=== PATIENT | female | born 1975 | race Caucasian/White ===

== ENCOUNTER 2022-01-04 11:18 | Emergency (ER) | payer OTHER, SELFPAY ==
--- NOTE | ~2022-01-04 | XR_ITS ---
XR chest 2V DATE: 01/04/2022 11:52 INDICATION: Persistent cough TECHNIQUE: PA and lateral views COMPARISON: None FINDINGS: Normal heart size. No hilar or mediastinal enlargement. No pulmonary infiltrate or consolid ation, pleural effusion or pulmonary vascular congestion or pneumothorax. There is dextroscoliosis of the thoracic spine. IMPRESSION: No active cardiac pulmonary disease Reviewed, dictated and finalized at location B. [employer]
[2022-01-04 11:26] VITALS: BP 147/85; PULSE 77; RESP 16; TEMP 36.7; O2SAT 99
--- NOTE | 2022-01-04 11:31 | ED.URI ---
HPI - URI/Sore Throat General Chief Complaint: Upper Respiratory Infection Stated Complaint: Cough, headache. Time Seen by Provider: 01/04/22 11:32 Source: patient and RN notes reviewed Mode of arrival: ambulatory Limitations: no limitations History of Present Illness HPI Narrative: 46-year-old female presented for complaint of for approximately 6 weeks. She has taken [id number] medications including Mucinex and Robitussin, she has used her son's inhaler and nebulizer machine, but continues to have a frequent part of cough throughout the day. She endorses associated headache, shortness of breath with exertion, occasional wheezing, and chest pressure when coughing. She denies nausea, vomiting, diarrhea, fever or chills. States she was unable to be seen by her PCP without a negative Covid test. She has been fully vaccinated and boosted. She denies sick contacts. MD elicited complaint: cough Related Data Home Medications Medication Instructions Recorded Confirmed norethindrone-e.estradiol-iron [Lo tablet 01/04/22 Loestrin Fe] Allergies Allergy/AdvReac Type Severity Reaction Status Date / Time No Known Allergies Allergy Verified 01/04/22 11:27 Review of Systems Review of Systems: CONSTITUTIONAL: Denies malaise, chills, sweats, fever EYES: Denies visual changes, redness, or discharge ENT: Denies rhinorrhea, congestion, sinus pain, otalgia, sore throat CARDIOVASCULAR: Denies chest pain, palpitations, edema RESPIRATORY: Reports cough, dyspnea GASTROINTESTINAL: Denies abdominal pain, nausea, vomiting, diarrhea SKIN: Denies rash or itching MUSCULOSKELETAL: Denies myalgia NEUROLOGIC: Denies headache Exam Narrative: GENERAL: Ill-appearing, nontoxic no acute distress. HEAD: Normocephalic EYES: PERRLA, conjunctivae clear ENT: Mucous membranes moist. TM pearly paredes with dull light reflex bilaterally; no tragal tenderness. Oropharynx erythematous without lesions or exudate, no drooling, no hoarseness, no trismus, uvula midline. NECK: Supple. No lymphadenopathy CHEST: Frequent nonproductive cough; clear to auscultation, breath sounds equal. No wheezing, rhonchi, rales, or stridor. No respiratory distress, speaks in full sentences. HEART: Regular rate and rhythm. No murmur heard. SKIN: Warm, dry, no rash. NEURO: Alert and oriented x3. PSYCH: Normal mood and affect Course Course Emergency Course: covid neg CXR reviewed, we discussed possible etiologies of cough. Patient is aware of diagnosis, understands and agrees to treatment plan. Anticipatory guidance given. Patient agrees to follow-up as directed and is aware of reasons to seek care at the emergency department. Portions of this record may have been created with voice recognition software Level of Care: Express Care Visit Vital Signs Vital signs: Vital Signs Temperature 98.0 F 01/04/22 11:26 Pulse Rate 77 01/04/22 11:26 Respiratory Rate 16 01/04/22 11:26 Blood Pressure 147/85 H 01/04/22 11:26 Pulse Oximetry 99 01/04/22 11:26 Temperature 98.0 F 01/04/22 11:26 Pulse Rate 77 01/04/22 11:26 Respiratory Rate 16 01/04/22 11:26 Blood Pressure 147/85 H 01/04/22 11:26 Pulse Oximetry 99 01/04/22 11:26 reviewed MDM - URI/Sore Throat Differential Diagnosis Differential diagnosis: Likely upper respiratory infection, sinusitis, viral infection, bronchitis and other (Coronavirus, strep pharyngitis, allergic rhinitis, rhinosinusitis, nasopharyngitis. viral pharyngitis, pneumonia, bronchitis, viral cough syndrome, viral syndrome, and influenza. ) Lab Data Attestation: I reviewed the patient's lab results. Labs: Lab Results 01/04/22 Range/Units 11:46 POC SARS CoV-2 Ag Negative (Negative) Imaging Data Attestation: I personally reviewed and interpreted this imaging study as follows: My impression: No active cardiac pulmonary disease Radiologist's impression: XR chest 2V DATE: 01/04/2022 11:52 INDICATION: Persi
== END 2022-01-04 12:25 | disposition home or self-care (01) ==
PROVIDERS: Emergency Provider Nurse Practitioner Family
DX: J06.9 Acute upper respiratory infection, unspecified (principal); Z20.822 Contact with and (suspected) exposure to COVID-19
CPT/HCPCS: 71046; 87426; 99203; C9803; G0463

== ENCOUNTER 2023-03-01 15:56 | Emergency (ER) | payer OTHER, SELFPAY ==
[2023-03-01 16:12] VITALS: BP 128/87; PULSE 105; RESP 18; TEMP 36.5; O2SAT 99
[2023-03-01 16:22] LABS: Basophils Absolute Auto 0.1 K/mm3 (0.0-0.1); Basophils Percent Auto 0.5 % (0.2-1.2); Eosinophils Absolute Auto 0.4 K/mm3 (0-0.3); Eosinophils Percent Auto 2.9 % (0-4.4); Hemoglobin 14.1 g/dL (12.0-15.0); Immature Granulocyte Absolute 0.07 K/mm3 (0.00-0.031); Immature Granulocyte Percent A 0.5 % (0-0.5); Lymphocytes Absolute Auto 2.31 K/mm3 (0.9-3.2); Lymphocytes Percent Auto 16.5 % (18.3-44.2); Mean Corpuscular HGB Conc 32.8 g/dl (32-36); Mean Corpuscular Hemoglobin 31.3 pg (26-34); Mean Corpuscular Volume 95.6 fl (80-100); Mean Platelet Volume 9.3 fl (7.4-10.4); Monocytes Absolute Auto 0.7 K/mm3 (0.1-0.6); Monocytes Percent Auto 5.1 % (2.6-8.5); Neutrophils Absolute Auto 10.5 K/mm3 (1.3-6.7); Neutrophils Percent Auto 74.5 % (45.5-73.1); Platelet Count Result 360 k/mm3 (150-375); Red Cell Distribution Width 12.7 % (11.5-14.5)
[2023-03-01 16:32] LABS: Alanine Aminotransferase 19 U/L (6-35); Albumin Level 4.6 g/dL (3.5-5.1); Alkaline Phosphatase 93 U/L (38-126); Anion Gap 12 mmol/L (8-16); Aspartate Amino Transferase 22 U/L (14-36); Bilirubin,Total 0.5 mg/dL (0.2-1.3); Blood Urea Nitrogen 9 mg/dL (7-17); Calcium 9.3 mg/dL (8.4-10.2); Carbon Dioxide 19 mmol/L (22-30); Chloride 105 mmol/L (98-107); Estimated Glomerular Filt Rate > 60; Glucose 90 mg/dL (65-110); Lipase 77 U/L (23-300); Potassium 4.1 mmol/L (3.4-5.0); Sodium 136 mmol/L (137-145)
== END 2023-03-01 21:59 | disposition left against medical advice (07) ==
PROVIDERS: Emergency Provider General Practice; PCP Internal Medicine
DX: R10.9 Unspecified abdominal pain (principal)
CPT/HCPCS: 36415; 80053; 83690; 85025; 99199

== ENCOUNTER 2023-03-02 10:23 | Emergency (ER) | payer OTHER, SELFPAY ==
[2023-03-02 10:37] VITALS: BP 130/94; PULSE 96; RESP 16; TEMP 36.8; O2SAT 100
--- NOTE | 2023-03-02 10:38 | ED.ABDPAIN ---
HPI - Abdominal Pain General Chief Complaint: Abdominal Pain Stated Complaint: UPPER ABD PAIN/SWELLING Time Seen by Provider: 03/02/23 10:38 Source: patient and RN notes reviewed Mode of arrival: ambulatory Limitations: no limitations History of Present Illness HPI narrative: 47-year-old female presented for complaint of right upper abdominal pain, distension, and nausea since yesterday. Endorses diarrhea this morning and decreased appetite. Patient went to the emergency room yesterday, waited 8 hours and then left. She called her PCP today and schedule an appointment for tomorrow. She states she would like to see her lab work from the ER. She does not plan to return to the emergency room today. Related Data Home Medications Medication Instructions Recorded Confirmed norethindrone 1 mg-ethinyl tablet 01/04/22 estradiol 10 mcg (24)-iron 10 mcg(2) tablet (Lo Loestrin Fe) Allergies Allergy/AdvReac Type Severity Reaction Status Date / Time No Known Allergies Allergy Verified 01/04/22 11:27 Review of Systems Review of Systems: CONSTITUTIONAL: Denies body aches, fever, chills ENT: Denies rhinorrhea, congestion CARDIOVASCULAR: Denies chest pain, palpitations, or edema. RESPIRATORY: Denies cough or dyspnea. GASTROINTESTINAL: Endorses abdominal pain, bloating Denies hematochezia, melena, hematemesis GENITOURINARY: Denies dysuria, hematuria, or CVA tenderness. SKIN: Denies rash, itching, or wounds. MUSCULOSKELETAL: Denies back pain, joint pain, or myalgia. NEUROLOGIC: Denies headache, numbness, tingling, or weakness. All systems reviewed & are unremarkable except as noted in HPI and below [facility] Past Medical History Medical History (Updated 03/02/23 @ 10:57 by Nasreen Mix, SCOTTIE) No pertinent past medical history Comments At time of signature, I have reviewed and agree with nursing past medical, surgical, social and family history unless otherwise noted. Please see nursing chart for further information. There is no relevant family history pertinent to the presenting complaint Exam Narrative: GENERAL: Well-appearing, and in no acute distress. EYES: EOMI. Conjunctivae normal. ENT: Mucous membranes pink and moist. CHEST: No respiratory distress. Clear to auscultation. HEART: Regular rate and rhythm. No murmur appreciated. Normal peripheral pulses. ABDOMEN: abd soft, distended; normal active bowel sounds. Tender abdomen to RUQ, LUQ; No guarding, rebound tenderness, asymmetry EXTREMITIES: Normal range of motion. No edema. SKIN: Warm, dry, no rash. Capillary refill normal. Normal skin turgor. NEURO: No focal deficits. Alert and oriented x3. PSYCH: Normal affect. Course Course Emergency Course: Patient is aware of diagnosis, understands and agrees to treatment plan. Anticipatory guidance given. Patient agrees to follow-up as directed and is aware of reasons to seek care at the emergency department. Portions of this record may have been created with voice recognition software Level of Care: Express Care Visit Vital Signs Vital signs: Vital Signs Temperature 98.2 F 03/02/23 10:37 Pulse Rate 96 03/02/23 10:37 Respiratory Rate 16 03/02/23 10:37 Blood Pressure 130/94 H 03/02/23 10:37 Pulse Oximetry 100 03/02/23 10:37 Temperature 98.2 F 03/02/23 10:37 Pulse Rate 96 03/02/23 10:37 Respiratory Rate 16 03/02/23 10:37 Blood Pressure 130/94 H 03/02/23 10:37 Pulse Oximetry 100 03/02/23 10:37 MDM - Abdominal Pain MDM Narrative Medical decision making narrative: Patient presenting with complaint abdominal distension, right upper quadrant abdominal pain, and nausea since yesterday. She is advised to return to the emergency room for further evaluation. She declines at this time, she states she will follow-up with her PCP as scheduled tomorrow. If symptoms worsen she will go to the ER. We discussed multiple etiologies of her symptoms including surgical renetta
== END 2023-03-02 10:57 | disposition home or self-care (01) ==
PROVIDERS: Emergency Provider Nurse Practitioner Family; PCP Internal Medicine
DX: R10.11 Right upper quadrant pain (principal); E28.2 Polycystic ovarian syndrome; Z86.2 Personal history of diseases of the blood and blood-forming organs and certain disorders involving the immune mechanism; Z79.82 Long term (current) use of aspirin
CPT/HCPCS: 99211; G0463

== ENCOUNTER 2023-10-18 14:50 | Emergency (ER) | payer OTHER, SELFPAY ==
[2023-10-18 15:03] VITALS: BP 136/96; PULSE 84; RESP 16; TEMP 36.4; O2SAT 97
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
== END 2023-10-18 15:55 | disposition home or self-care (01) ==
PROVIDERS: Emergency Provider Nurse Practitioner; PCP Internal Medicine
DX: S20.212A Contusion of left front wall of thorax, initial encounter (principal); S46.812A Strain of other muscles, fascia and tendons at shoulder and upper arm level, left arm, initial encounter; V49.40XA Driver injured in collision with unspecified motor vehicles in traffic accident, initial encounter
CPT/HCPCS: 99212; G0463

== ENCOUNTER 2024-03-11 08:26 | Outpatient (CLI) | payer OTHER, SELFPAY ==
--- NOTE | ~2024-03-11 | CT_ITS ---
EXAMINATION: CT abdomen pelvis wo con DATE: 03/11/2024 08:48 INDICATION: Abdominal pain TECHNIQUE: Computed tomography (CT) of the abdomen and pelvis was performed without intravenous contr ast. The dose-length product was 770.69 mGy-cm. . Automated exposure control and iterative reconstruc tion technique were employed. COMPARISON: None. FINDINGS: Lung bases are unremarkable. Heart size normal. No significant pleural or pericardial effus ion. The liver, spleen, pancreas, adrenal glands and right kidney are unremarkable. There is a puncta te 1 mm nonobstructing left renal stone. Nonobstructive bowel pattern. Colonic diverticulosis without evidence for diverticulitis. No significant vascular abnormality. No lymphadenopathy. Mild levoscoli osis of the lumbar spine. No acute osseous abnormality. IMPRESSION: 1. No acute abdominal abnormality. 2: Nonobstructing left nephrolithiasis. Reviewed, dictated and finalized at location B.
== END 2024-03-11 08:27 ==
PROVIDERS: PCP Internal Medicine
DX: N20.0 Calculus of kidney (principal)
CPT/HCPCS: 74176

== ENCOUNTER 2024-03-26 07:00 | Outpatient (NON) | payer OTHER, SELFPAY | END 2024-03-26 07:01 | disposition home or self-care (01) | LOC: ANHLAB 03-27 09:06 | PROVIDERS: PCP Internal Medicine; Visit Provider Internal Medicine Gastroenterology | DX: K22.70 Barrett's esophagus without dysplasia (principal) | CPT/HCPCS: 88305 ==

== ENCOUNTER 2024-03-26 09:47 | Day surgery (SDC) | payer OTHER, SELFPAY ==
[2024-03-19 09:00] VITALS: BMI 26.7
[2024-03-19 14:41] VITALS: BMI 26.6
[2024-03-26 10:55] VITALS: BP 124/92; PULSE 88; RESP 16; TEMP 37.2; O2SAT 98
[2024-03-26] MEDS: LACTATED RINGERS 1,000 ML 150 ML IV CONT (10:59)
--- NOTE | 2024-03-26 11:18 | WPDANESEPPF ---
Anes - Initial Pre Proc Eval Procedure: Operation Date: 03/26/24 12:00 Proposed Procedures p Esophagogastroduodenoscopy - Dima Morin MD Date/Time: 03/26/24 11:18 Surgeon: Dima Morin MD Pre Op Diagnosis: Nausea,abnormal immunological findings in specimen Patient Data Age: 48 Gender: F Height: 1.7 m Weight: 77.25 kg Last Vital Signs Temp 37.2 C 03/26/24 10:55 Pulse 88 03/26/24 10:55 Resp 16 03/26/24 10:55 BP 124/92 H 03/26/24 10:55 Pulse Ox 98 03/26/24 10:55 O2 Del Method Room Air 03/26/24 10:55 Allergies Allergy/AdvReac Type Severity Reaction Status Date / Time Sulfa (Sulfonamide Allergy Mild Hives Verified 03/26/24 10:54 Antibiotics) Home Medications Medication Instructions Recorded Confirmed Type aspirin 81 mg tablet,delayed 81 mg PO DAILY 03/02/23 03/26/24 History release multivitamin 1 tablet PO DAILY 03/02/23 03/26/24 History norethindrone 1 mg-ethinyl 1 tablet PO DAILY 03/18/24 03/26/24 History estradiol 10 mcg (24)-iron 10 mcg(2) tablet (Lo Loestrin Fe) rifaximin 550 mg tablet (Xifaxan) 550 mg PO TID #42 tabs 03/18/24 03/26/24 Rx Patient hx anesthesia problems: none Family hx anesthesia problems: none Results Review: All pre-operative results and documents have been reviewed as part of the pre-operative evaluation. [facility] Past Medical History Medical History Allergies No pertinent past medical history PCOS (polycystic ovarian syndrome) Surgical History Surgical History History of Family History Family History Father Carcinoma of colon Social History Social History Smoking status: Never smoker Alcohol intake: current Drinks per week: 2 Alcohol use details: SOCIALLY Substance use: never Substance use type: does not use Living arrangements: with family Spiritual care concerns: No Anes - Eval Final PreProcedure Day of Procedure 03/26/24 11:18 Patient weight: overweight Heart: regular rate and rhythm Lungs: clear to auscultation Airway: Mallampati scale class II Neurological: alert and oriented Last oral intake: >/= 8 hours ASA classification: II Emergent: no Anesthetic plan: proceed Anesthesia type and monitoring: general GIVS and standard monitoring Results Review: All pre-operative results and documents have been reviewed as part of the pre-operative evaluation. Informed Consent: The patient's anesthetic plan and its attendant risks and benefits were discussed with the patient/family/POA. Questions were solicited and answers provided to the satisfaction of the patient/family/POA.
--- NOTE | 2024-03-26 11:20 | PM.HPGS ---
History of Present Illness History of Present Illness Consent: Risks, benefits, and alternatives have been discussed and questions answered. Patient agrees to proceed with procedure. Chief complaint: Nausea,abnormal immunological findings in specimen Narrative: Barbara Menon is a 48 year old female Who is referred for investigation of upper this is throughout the day particularly after meals. She also has had nausea. Review of Systems Review of Systems: All systems reviewed & are unremarkable except as noted in HPI and below PMFSH Past Medical History Medical History Allergies No pertinent past medical history PCOS (polycystic ovarian syndrome) Surgical History Surgical History History of Family History Family History Father Carcinoma of colon Social History Social History Smoking status: Never smoker Alcohol intake: current Drinks per week: 2 Alcohol use details: SOCIALLY Substance use: never Substance use type: does not use Living arrangements: with family Spiritual care concerns: No Meds Home Medications and Allergies Home Medications Medication Instructions Recorded Confirmed Type aspirin 81 mg tablet,delayed 81 mg PO DAILY 03/02/23 03/26/24 History release multivitamin 1 tablet PO DAILY 03/02/23 03/26/24 History norethindrone 1 mg-ethinyl 1 tablet PO DAILY 03/18/24 03/26/24 History estradiol 10 mcg (24)-iron 10 mcg(2) tablet (Lo Loestrin Fe) rifaximin 550 mg tablet (Xifaxan) 550 mg PO TID #42 tabs 03/18/24 03/26/24 Rx Allergies Allergy/AdvReac Type Severity Reaction Status Date / Time Sulfa (Sulfonamide Allergy Mild Hives Verified 03/26/24 10:54 Antibiotics) Vital Signs Vital Signs - 24 hr 03/26/24 10:55 Temperature 37.2 C Pulse Rate 88 Respiratory Rate 16 Blood Pressure 124/92 H Pulse Oximetry 98 Oxygen Delivery Room Air Exam Const: General: alert Orientation/consciousness: patient oriented x3 Resp: Auscultation: clear to auscultation bilaterally Cardio: Rhythm: regular rhythm GI: GI Palp: Yes Soft to palpation and No Tenderness to palpation present (GI) Neuro: General: patient oriented x3 Assessment and Plan Assessment and plan (1) Nausea: Code(s): R11.0 - Nausea Status: Acute Assessment and Plan: EGD with possible biopsy or dilatation or cautery.
[2024-03-26 12:09] VITALS: BP 98/69; PULSE 83; RESP 18; O2SAT 100
--- NOTE | 2024-03-26 12:18 | WPDANESPN ---
Anes - Prog Note Post-Op Date/Time: 03/26/24 12:18 Cardiovascular status: normal Respiratory status: normal Airway patency: baseline Mental status: baseline Post-Op hydration status: normal Vital Signs: Last Vital Signs Temp 37.2 C 03/26/24 10:55 Pulse 83 03/26/24 12:09 Resp 18 03/26/24 12:09 BP 98/69 L 03/26/24 12:09 Pulse Ox 100 03/26/24 12:09 O2 Del Method Room Air 03/26/24 12:09 Pain Score (VAS): 0/10 Patient Feedback: Patient satisfied with anesthetic care.
[2024-03-26 12:19] VITALS: BP 117/77; PULSE 72; RESP 16; O2SAT 97
[2024-03-26 12:29] VITALS: BP 117/76; PULSE 65; RESP 16; O2SAT 98
== END 2024-03-26 12:41 | disposition home or self-care (01) ==
PROVIDERS: PCP Internal Medicine; Visit Provider Internal Medicine Gastroenterology
PROC: 0DJ08ZZ Inspection of Upper Intestinal Tract, Via Natural or Artificial Opening Endoscopic (ICD-10-PCS; CPT 43235; principal; 2024-03-26 12:00)
DX: R10.13 Epigastric pain (principal); K21.00 Gastro-esophageal reflux disease with esophagitis, without bleeding; K44.9 Diaphragmatic hernia without obstruction or gangrene; K29.70 Gastritis, unspecified, without bleeding
CPT/HCPCS: 43239

== ENCOUNTER 2025-04-04 09:23 | Emergency (ER) | payer OTHER, SELFPAY ==
--- NOTE | ~2025-04-04 | XR_ITS ---
EXAMINATION: XR knee LT min 4V DATE: 04/04/2025 09:53 INDICATION: Left knee pain and swelling post fall TECHNIQUE: Anteroposterior, 2 oblique, sunrise and crosstable lateral views of the left knee were obt ained COMPARISON: None. FINDINGS: Alignment is normal. No fracture. Joint spaces appear normal on nonweightbearing imaging. No joint e ffusion/layering lipohemarthrosis. Prominent prepatellar soft tissue swelling with subcutaneous edema which extends lateral to the knee. IMPRESSION: 1. Prominent prepatellar soft tissue swelling. No left knee joint effusion or osseous abnormality. Reviewed, dictated and finalized at location A. IMPRESSION: 1. Prominent prepatellar soft tissue swelling. No left knee joint effusion or o sseous abnormality.
--- NOTE | 2025-04-04 09:30 | ED_ITS ---
HPI - Extremity Injury (Lower) General Chief Complaint: Extremity Injury, Lower Stated Complaint: INJURED L KNEE Time Seen by Provider: 04/04/25 09:30 Source: patient Mode of arrival: ambulatory Limitations: no limitations History of Present Illness HPI Narrative: Barbara is a old female patient presenting to the clinic today with complaints of a left knee injury/pain. She reports she tripped and fell last night and landed on the anterior left knee. Has pain and swelling to the knee joint. Has an abrasion to the left anterior knee Related Data Home Medications Medication Instructions Recorded Confirmed Last Taken Type aspirin 81 mg tablet,delayed 81 mg PO DAILY 03/02/23 03/26/24 Unknown History release multivitamin 1 tablet PO DAILY 03/02/23 03/26/24 Unknown History norethindrone 1 mg-ethinyl 1 tablet PO DAILY 03/18/24 03/26/24 Unknown History estradiol 10 mcg (24)-iron 10 mcg(2) tablet (Lo Loestrin Fe) Allergies Allergy/AdvReac Type Severity Reaction Status Date / Time Sulfa (Sulfonamide Allergy Mild Hives Verified 04/04/25 09:32 Antibiotics) Review of Systems Review of Systems: Pertinent positives per HPI. Patient denies any fever, chills, rash, headache, visual changes, dizziness, cough, runny nose, sore throat, shortness of breath, chest pain, palpitations, nausea, vomiting, diarrhea, constipation, abdominal pain, or any urinary issues. [facility] Past Medical History Medical History PCOS (polycystic ovarian syndrome) Allergies No pertinent past medical history Surgical History Surgical History History of Family History Family History Father Carcinoma of colon Social History Social History Smoking status: Never smoker Alcohol intake: current Drinks per week: 2 Alcohol use details: SOCIALLY Substance use: never Substance use type: does not use Living arrangements: with family Spiritual care concerns: No Comments At the time of my signature, I reviewed and agree with the nursing past medical, surgical, social, and family history. There is no relevant family history pertinent to the patient complaint. Exam Narrative: General: Well-developed, well nourished, in no apparent distress Head: Normocephalic, atraumatic. Cardio: Regular rate and rhythm, s1 and s2 normal, no murmur appreciated. Resp: Clear to auscultation bilaterally, no rhonchi, rales, wheezing or rubs. Musculoskeletal: No deformity, diffuse swelling, tender to palpation over the anterior knee, pain with flexion and extension due to swelling, muscle strength strong and equal, peripheral pulse strong, no edema, no cyanosis, normal gait and station Course Course Emergency Course: Portions of this record may have been created with voice recognition software. Level of Care: Express Care Visit Vital Signs Vital signs: Vital Signs Temperature 36.6 C 04/04/25 09:34 Pulse Rate 91 04/04/25 09:34 Respiratory Rate 16 04/04/25 09:34 Blood Pressure 136/85 04/04/25 09:34 Pulse Oximetry 100 04/04/25 09:34 Temperature 36.6 C 04/04/25 09:34 Pulse Rate 91 04/04/25 09:34 Respiratory Rate 16 04/04/25 09:34 Blood Pressure 136/85 04/04/25 09:34 Pulse Oximetry 100 04/04/25 09:34 Vital signs reviewed MDM - Extremity Injury (Lower) MDM Narrative Medical decision making narrative: At the time of visit patient is resting comfortably on the exam table. Patient appears to be nontoxic. Diagnostics: X-ray of the left knee was performed was negative for any sign of fracture or malalignment. Does show a patellar soft tissue swelling Plan: I suspect patient has soft tissue swelling, contusion, abrasion to the right knee. Patient declined tetanus in the clinic today. Supportive measures were discussed with the patient and they voiced understanding discharge instructions and agrees to treatment plan. Return precautions reviewed Differential Diagnosis Differential diagnosis: Likely acute internal derangement of knee and other (Knee contusion, knee sprain, patellar) Imaging Data Radiologist's impression: ITS Impressions Knee X-Ray 04/04/25 09:58 IMPRESSION: 1. Prominent prepatellar soft tissue swelling. No left knee joint effusion or osseous abnormality. Discharge Plan Discharge Clinical Impression: Soft tissue swelling of knee joint, Abrasion Contusion of knee Qualifiers: Encounter type: initial encounter Laterality: left Qualified Code(s): S80.02XA - Contusion of left knee, initial encounter Patient Disposition: Home Condition: Stable Instructions: Antibiotic Form, Contusion in Adults (ED), Abrasion (ED), Knee Pain (ED), Swollen Joint (ED) Additional Instructions: X-rays negative for any sign of fracture or malalignment of the left knee. Does show soft tissue swelling Rest, ice, elevate, and wear safia wrap as directed Tylenol/motrin for pain as discussed. Gradually bear weight No running or sports until healed. Follow up with your PCP if symptoms persist more than 1 week. Patient Language: Tuvaluan Prescriptions: No Action multivitamin [Daily Vitamin] Tablet 1 tablet PO DAILY aspirin [Adult Aspirin EC Low Strength] 81 mg Tablet,Delayed Release (Dr/Ec) 81 mg PO DAILY Lo Loestrin Fe 1 mg-10 mcg (24)/10 mcg (2) tablet 1 tablet PO DAILY Xifaxan 550 mg tablet 550 mg PO TID Qty: 42 1RF Rx Instructions: NEW PRESCRIPTION, HASN'T STARTED YET omeprazole 40 mg capsule,delayed release(DR/EC) See Rx Instructions .ROUTE .COMPLEX Qty: 90 0RF Dose Instruction: TAKE 1 CAPSULE BY MOUTH DAILY Rx Instructions: TAKE 1 CAPSULE BY MOUTH DAILY Follow-up/Referrals: Fareed,Feliz Zamora MD [Primary Care Provider] - Time of Disposition: 10:09 Quality NIHSS Nursing Documentation ED NIHSS nursing documentation: reviewed/agree
[2025-04-04 09:34] VITALS: BP 136/85; PULSE 91; RESP 16; TEMP 36.6; O2SAT 100
== END 2025-04-04 10:17 | disposition home or self-care (01) ==
PROVIDERS: Emergency Provider Nurse Practitioner Family; PCP Internal Medicine
DX: M25.462 Effusion, left knee (principal); S80.212A Abrasion, left knee, initial encounter; S80.02XA Contusion of left knee, initial encounter; W01.0XXA Fall on same level from slipping, tripping and stumbling without subsequent striking against object, initial encounter; Z79.82 Long term (current) use of aspirin; E28.2 Polycystic ovarian syndrome
CPT/HCPCS: 73564; 99213; G0463